=== PATIENT | male | born 1990 | race Caucasian/White ===

== ENCOUNTER 2020-08-20 03:37 | Inpatient (IN) | payer SELFPAY ==
[2020-08-20] VITALS (11 sets, daily range): BP systolic 91–124; BP diastolic 40–71; Ht 177.8 cm; Wt 86.4 kg
[~2020-08-20] VITALS: Ht 177.8 cm; Wt 86.4 kg
[2020-08-20 03:59] LABS: BASOPHILS 0.1 % (0-2); EOSINOPHILS 0.2 % (0-7); HEMATOCRIT 46.6 % (42.0-54.0); IMMATURE GRANULOCYTES 0.3 % (0-5); LYMPHOCYTES 11.8 % (15-50); MCHC 34.3 g/dL (31.0-37.0); MCV 84.6 fL (80.0-100.0); MEAN PLATELET VOLUME 11.8 fL (7.4-10.4); MONOCYTES 5.8 % (2-11); NEUTROPHILS 81.8 % (40-80); PLATELET COUNT 278 10x3/uL (130-400); RBC 5.51 10x6/uL (4.20-6.10); RDW 12.7 % (11.5-14.5); WBC 18.4 10x3/uL (4.8-10.8)
[2020-08-20 04:14] LABS: CALC OSMOLALITY 286 mosm/kg (275-300); CARBON DIOXIDE 27.1 mmol/L (21.0-32.0); CHLORIDE - SERUM 103 mmol/L (98-107); CREATININE - SERUM 1.3 mg/dL (0.6-1.3); GLUCOSE 146 mg/dL (74-106); SODIUM 141 mmol/L (136-145); UREA NITROGEN 21 mg/dL (7-18); eGFR NON AFRICAN AMERICAN 70 mL/min (90-120)
[2020-08-20 04:22] LABS: ALBUMIN 4.2 g/dL (3.4-5.0); ALKALINE PHOSPHATASE 74 U/L (30-120); ALT (SGPT) 33 U/L (10-68); AMYLASE - SERUM 76 U/L (25-115); BILIRUBIN - TOTAL 0.54 mg/dL (0.2-1.3); LIPASE 412 U/L (73-393); PROTEIN - SERUM 7.5 g/dL (6.4-8.2)
[2020-08-20 04:32] LABS: TROPONIN-I < 0.017 ng/mL (0.000-0.060)
[2020-08-20 06:23] LABS: INR 0.98 (0.85-1.17)
--- NOTE | 2020-08-20 10:59 | NUR ---
PATIENT STATES ABD IS A LITTLE UNCOMFORTABLE. RATES A 3
[2020-08-20 11:48] LABS: MAGNESIUM - SERUM 1.8 mg/dL (1.8-2.4); PHOSPHOROUS 2.5 mg/dL (2.5-4.9)
--- NOTE | 2020-08-20 13:14 | NUR ---
1311 RT HERE FOR UPDRAFT TREATMENT, REPORT PHONED TO ROGELIO THEN WILL GO TO ROOM [id number]
--- NOTE | 2020-08-20 19:45 | NUR ---
SUPINE IN BED, A&O X 4. REPORTS NAUSEA. INFORMED OF NEXT AVAILABLE NAUSEA MED. EMESIS BAGS AT , CTM.
[2020-08-20 23:33] LABS: BILIRUBIN NEGATIVE (NEGATIVE); KETONE NEGATIVE (NEGATIVE); NITRITE NEGATIVE (NEGATIVE); UROBILINOGEN NORMAL mg/dL (< 2)
--- NOTE | 2020-08-21 02:32 | NUR ---
I have reviewed this patient and I concur with the Shift Assessment completed by the Licensed Practical Nurse today this shift.
[2020-08-21 04:00] VITALS: BP 106/67
[2020-08-21 06:17] LABS: HEMATOCRIT 38.6 % (42.0-54.0); MCH 28.8 pg (26.0-34.0); MCHC 33.7 g/dL (31.0-37.0); MCV 85.6 fL (80.0-100.0); MEAN PLATELET VOLUME 12.7 fL (7.4-10.4); PLATELET COUNT 202 10x3/uL (130-400); RBC 4.51 10x6/uL (4.20-6.10); RDW 13.1 % (11.5-14.5); WBC 21.9 10x3/uL (4.8-10.8)
[2020-08-21 06:39] LABS: ALKALINE PHOSPHATASE 50 U/L (30-120); ALT (SGPT) 26 U/L (10-68); BILIRUBIN - TOTAL 0.56 mg/dL (0.2-1.3); CALCIUM 8.3 mg/dL (8.5-10.1); CHLORIDE - SERUM 104 mmol/L (98-107); GLUCOSE 134 mg/dL (74-106); MAGNESIUM - SERUM 1.9 mg/dL (1.8-2.4); PROTEIN - SERUM 5.7 g/dL (6.4-8.2); SODIUM 136 mmol/L (136-145); eGFR NON AFRICAN AMERICAN > 90 mL/min (90-120)
[2020-08-21 06:41] LABS: CALC OSMOLALITY 273 mosm/kg (275-300); POTASSIUM - SERUM 4.3 mmol/L (3.5-5.1); UREA NITROGEN 13 mg/dL (7-18)
[2020-08-21 07:33] LABS: EOSINOPHILS 1 % (0-7); LYMPHOCYTES 6 % (15-50); MONOCYTES 4 % (2-11); NEUTROPHILS 86 % (40-80); PLATELET ESTIMATE NORMAL
[2020-08-21 08:00] VITALS: BP 123/51
--- NOTE | 2020-08-21 10:11 | NUR ---
ASSESSMENT PER FLOW SHEET. PATIENT WITHOUT DITRESS. INSTRUCTED AMBULATION AFTER MEAL FINISHED. WILL GIVE MINERAL OIL AFTER MEAL
[2020-08-21 11:56] VITALS: BP 116/55
--- NOTE | 2020-08-21 15:41 | NUR ---
POD #1 LAP SITES X 3 WITH CALLY DRAIN NO S/S INFECTION.
[2020-08-21 15:53] VITALS: BP 122/61
[2020-08-21 20:00] VITALS: BP 108/52
[2020-08-22 04:00] VITALS: BP 102/49
--- NOTE | 2020-08-22 04:05 | NUR ---
I have reviewed this patient and I concur with the Shift Assessment completed by the Licensed Practical Nurse today this shift.
[2020-08-22 05:48] LABS: BASOPHILS 0.1 % (0-2); EOSINOPHILS 0.1 % (0-7); HEMATOCRIT 36.2 % (42.0-54.0); IMMATURE GRANULOCYTES 0.1 % (0-5); LYMPHOCYTES 16.4 % (15-50); MCH 29.1 pg (26.0-34.0); MCHC 33.1 g/dL (31.0-37.0); MEAN PLATELET VOLUME 12.4 fL (7.4-10.4); MONOCYTES 8.6 % (2-11); NEUTROPHILS 74.7 % (40-80); PLATELET COUNT 191 10x3/uL (130-400); RBC 4.12 10x6/uL (4.20-6.10); RDW 13.4 % (11.5-14.5)
[2020-08-22 05:56] LABS: WBC 10.3 10x3/uL (4.8-10.8)
[2020-08-22 05:57] LABS: MCV 87.9 fL (80.0-100.0)
[2020-08-22 06:12] LABS: ALBUMIN 2.8 g/dL (3.4-5.0); ALKALINE PHOSPHATASE 45 U/L (30-120); ALT (SGPT) 20 U/L (10-68); BILIRUBIN - TOTAL 0.45 mg/dL (0.2-1.3); CALC OSMOLALITY 277 mosm/kg (275-300); CALCIUM 8.4 mg/dL (8.5-10.1); CARBON DIOXIDE 27.9 mmol/L (21.0-32.0); CHLORIDE - SERUM 108 mmol/L (98-107); CREATININE - SERUM 1.2 mg/dL (0.6-1.3); GLUCOSE 89 mg/dL (74-106); POTASSIUM - SERUM 3.9 mmol/L (3.5-5.1); PROTEIN - SERUM 5.9 g/dL (6.4-8.2); SODIUM 140 mmol/L (136-145); UREA NITROGEN 13 mg/dL (7-18); eGFR NON AFRICAN AMERICAN 77 mL/min (90-120)
[2020-08-22 08:00] VITALS: BP 125/64
[2020-08-22] MEDS ORDERED: TYLENOL W/CODEI1 TAB PO (11:19)
[2020-08-22] MEDS ORDERED: CIPRO500 MG PO (11:20)
[2020-08-22] MEDS ORDERED: FLAGYL500 MG PO (11:21)
--- NOTE | 2020-08-22 11:35 | NUR ---
SPOKE WITH SORIN NIETO TO SHOWER AND REPLACE DRESSING WITH DRY 4X4
[2020-08-22 12:00] VITALS: BP 109/65
--- NOTE | 2020-08-22 13:42 | NUR ---
REVIEWED DISCHARGE INFORMATION AND EDUCATION WITH PATIENT. CALLY DRAIN EDUCATION DONE AND ALL INFO RECEIVED WELL. IV REMOVED AND FULLY INTACT. TOLERATED WELL. NO ACUTE DISTRESS NOTED. TRANSFERRED TO EXIT VIA WC. TOLERATED WELL.
== END 2020-08-22 13:55 | disposition home or self-care (01) | DRG 331 ==
LOC: D.ER 03:37 → D.MS 13:48
PROVIDERS: Family Medicine; ADMIT Surgery; ATTEND Surgery
PROC: 0W9G4ZZ Drainage of Peritoneal Cavity, Percutaneous Endoscopic Approach (ICD-10-PCS; 2020-08-20)
PROC: 0DB84ZZ Excision of Small Intestine, Percutaneous Endoscopic Approach (ICD-10-PCS; principal; 2020-08-20 07:45)
DX: K57.20 Diverticulitis of large intestine with perforation and abscess without bleeding (principal); Q43.0 Meckel's diverticulum (displaced) (hypertrophic); K66.8 Other specified disorders of peritoneum